=== PATIENT | male | born 1955 | race Caucasian/White ===

== ENCOUNTER 2018-08-15 11:07 | Day surgery (SDC) | payer BC ==
[~2018-08-15 11:07] MED LIST: CEFAZOLIN 1 GM/50 ML (PMX) 50 ML IVPB
[2018-08-15] MEDS: SOD CHLORIDE 0.9% 1,000 ML IV (12:00)
[2018-08-15] MEDS ORDERED: MIDAZOLAM 1 MG/ML 2 ML INJ (12:48)
[2018-08-15] MEDS ORDERED: FENTAnyl 50 MCG/ML VIAL (12:52)
[2018-08-15] MEDS ORDERED: ROPIVACAINE 0.5 % 30 ML VIAL (12:52)
[2018-08-15] MEDS ORDERED: ALBUTEROL 0.083% (NEB) 2.5 MG/3 ML AMP HHN (13:00)
[2018-08-15] MEDS ORDERED: METOCLOPRAMIDE 10 MG INJ IV (13:00)
[2018-08-15] MEDS ORDERED: FENTAnyl 50 MCG/ML VIAL IV ×3 (13:00)
[2018-08-15] MEDS ORDERED: HYDROmorphONE 1 MG/5 ML IV SYRINGE IV ×2 (13:00)
[2018-08-15] MEDS: POLYMYXIN/BACITRACIN 1L IRRIG (13:12)
[2018-08-15] MEDS: BUPIVACAINE 0.5% (SDV) 30 ML INJ (13:46)
[2018-08-15] MEDS ORDERED: PROPOFOL 20 ML (13:51)
[2018-08-15] MEDS ORDERED: CLINDAMYCIN 900 MG/D5W (PMX) 50 ML IVPB (13:51)
[2018-08-15] MEDS ORDERED: ROCURONIUM 50 MG INJ (13:51)
[2018-08-15] MEDS ORDERED: KETOROLAC 30 MG INJ (13:51)
[2018-08-15] MEDS ORDERED: SUGAMMADEX SODIUM 200 MG/2 ML VIAL IV (13:52)
[2018-08-15] MEDS: MEPERIDINE 25 MG INJ IV (14:27)
[2018-08-15] MEDS: ONDANSETRON 4 MG INJ IV (14:27)
[2018-08-15] MEDS: HYDROmorphONE 1 MG/5 ML IV SYRINGE IV (14:28)
[2018-08-15] MEDS: DIPHENHYDRAMINE 50 MG INJ IV (14:32)
== END 2018-08-15 15:55 | disposition home or self-care (01) ==
LOC: SDS 11:07
DX: K42.9 Umbilical hernia without obstruction or gangrene (principal); I10 Essential (primary) hypertension; E78.5 Hyperlipidemia, unspecified
CPT/HCPCS: 49585